=== PATIENT | male | born 1930 | race Caucasian/White ===

== ENCOUNTER 2017-10-21 19:31 | Outpatient (CLI) | payer MEDICARE, BC ==
--- NOTE | 2017-10-21 21:05 | RAD ---
KUB SERIES FRONTAL VIEW: 10/21/17 Two views provided. INDICATION: Pain. FINDINGS: Nonspecific bowel gas pattern is seen. Upper abdomen is excluded from view limiting assessment in thi s regard. Osseous degenerative change is present. IMPRESSION: Nonspecific bowel gas pattern is visualized. POS: DEANN
== END 2017-10-21 19:32 | disposition home or self-care (01) ==
LOC: SJX 19:31
PROVIDERS: ATTEND Urology
DX: R52 Pain, unspecified (principal); R14.0 Abdominal distension (gaseous)
CPT/HCPCS: 74018

== ENCOUNTER 2017-12-30 08:18 | Day surgery (SDC) | payer MEDICARE, BC ==
[2017-12-29 12:23] VITALS: BMI 28.2
--- NOTE | 2017-12-30 00:50 | HP ---
SHORT STAY HISTORY AND PHYSICAL DATE OF ADMISSION: 12/30/2017 HISTORY OF PRESENT ILLNESS: Mr. Danial Steinberg is a very pleasant 87-year-old male referr ed to me for worsening dysphagia. The patient complains of dysphagia over the last year or so. The dysphagia is mostly to solid food. No difficulty drinking liquids. He has had chronic acid reflux a nd indigestion off and on. The patient comes in for an EGD and possible dilation. ALLERGIES: CODEINE and PENICILLIN. MEDICAL ILLNESSES: 1. Hypertension. 2. Enlarged prostate. 3. Hyperlipidemia. 4. CVA recovery. 5. Pacemaker insertion. 6. Coronary artery bypass graft. PHYSICAL EXAMINATION: VITAL SIGNS: Pulse is 70, blood pressure 120/76. HEENT: Conjunctivae clear. CARDIOVASCULAR SYSTEM: First and second heart sounds normal. LUNGS: Clear to auscultation. ABDOMEN: Soft to palpate. No organomegaly. No tenderness. No masses. ADMITTING DIAGNOSIS: An 87-year-old male with dysphagia. PLAN: EGD and possible dilation.
[2017-12-30] MEDS ORDERED: PROPOFOL 200 MG/20 ML VIAL ONE (13:58)
--- NOTE | 2017-12-31 11:18 | OP ---
DATE OF PROCEDURE: 12/30/2017 SURGEON: Haroon Lujan M.D. OPERATIVE PROCEDURE: 1. Esophagogastroduodenoscopy with biopsy. 2. Dilation with Blackman sizes 48 and 50-Wolof in diameter. PREOPERATIVE DIAGNOSES: 1. Chronic acid reflux. 2. Dysphagia. POSTOPERATIVE DIAGNOSES: 1. Esophagitis over the distal esophagus, erosions. 2. Distal esophageal stricture. 3. Hiatal hernia. 4. Gastritis. PROCEDURE IN DETAIL: The patient was placed on his left lateral position and was given sedation by A nesthesia Department. A [employer]ax video gastroscope under direct vision was passed down the oropharynx, past the GE junction, into the stomach and subsequently the descending duodenum. The esophageal muc keke appears normal over the upper two-thirds. Over the distal esophagus, the patient had esophagitis and erosion. Biopsy taken of the area. The patient has a distal esophageal stricture. The strictu re is not very tight. The scope advanced into the stomach without any difficulty. The patient has a hiatus hernia. Retroflexion failed to show pathology in the fundus or cardia. The gastric body, no pathology seen. The gastric antrum showed edematous and erythematous mucosa and gastritis. The duo denal bulb and descending duodenum, no pathology seen. The stomach was decompressed and the scope re moved. A Blackman size 48 Wolof and 50-Wolof passed with mild resistance. Post-dilation, the scope advanced into the stomach and mild oozing of blood at the GE junction noted. No complication noted. The stomach was decompressed and the scope removed. DISCHARGE PLANNING: This is an 87-year-old male who came in for an EGD because of dysphagi a. He underwent EGD with biopsy and dilation. DISCHARGE RECOMMENDATIONS: 1. Omeprazole 40 once a day. 2. The patient advised to call me if he develops abdominal pain, hematochezia, hematemesis or melena . 3. In the absence of any of the above symptoms, he will come back to me in 2 weeks.
== END 2017-12-30 12:33 | disposition home or self-care (01) ==
LOC: SDC 08:18
PROVIDERS: ATTEND Internal Medicine Gastroenterology
PROC: 0D737ZZ Dilation of Lower Esophagus, Via Natural or Artificial Opening (ICD-10-PCS; principal; 2017-12-30)
PROC: 0DB58ZX Excision of Esophagus, Via Natural or Artificial Opening Endoscopic, Diagnostic (ICD-10-PCS; 2017-12-30)
DX: K22.2 Esophageal obstruction (principal); K20.9 Esophagitis, unspecified; K44.9 Diaphragmatic hernia without obstruction or gangrene; K29.50 Unspecified chronic gastritis without bleeding; I10 Essential (primary) hypertension; N40.0 Benign prostatic hyperplasia without lower urinary tract symptoms; E78.5 Hyperlipidemia, unspecified; Z79.82 Long term (current) use of aspirin; Z79.899 Other long term (current) drug therapy; Z88.0 Allergy status to penicillin; Z88.5 Allergy status to narcotic agent; Z86.73 Personal history of transient ischemic attack (TIA), and cerebral infarction without residual deficits
CPT/HCPCS: 88305; 88312; 88313; J2704